=== PATIENT | male | born 1965 | race Caucasian/White ===

== ENCOUNTER → 2024-09-21 14:49 | Outpatient (REF) | payer OTHER, SELFPAY ==
--- NOTE | 2024-09-21 14:56 | CA_ITS ---
Transthoracic Echocardiogram Patient (Last, First, Middle): Manav Godfrey, Gender: Male Date of : 1965 Age: 58 Procedure Date: 09/21/2024 Procedure Type: Transthoracic Echocardiogram Location: OP Height: 180. cm Weight: 97.52 kg BSA: 2.17 m2 Heart Rate: 66 bpm BP: 160 / 75 mmHg Tier Truck Driver: BECCA Benoit MD: Rubia Stacy MD Symptoms: OBRIEN R06.09 Study Quality: Fair ECG Rhythm: Sinus Conclusions: - Normal left ventricular size, thickness, and systolic function. The visually estimated ejection fraction is between 55-60%. - Diastolic function is indeterminate on the basis of available data. - Normal right ventricular cavity size and systolic function. - There is mild dilatation of the sinuses of Valsalva measuring 3.80 cm and mild dilatation of the ascending aorta measuring 3.50 cm. Findings Left Ventricle Normal left ventricular size, thickness, and systolic function. The visually estimated ejection fraction is between 55-60%. There is paradoxical septal motion consistent with a left bundle branch block. Diastolic function is indeterminate on the basis of available data. Right Ventricle Normal right ventricular cavity size and systolic function. Atria The left atrium is normal in size. The right atrium is normal in size. Aortic Valve There is a normal trileaflet aortic valve. There is mild thickening of the aortic valve. There is no aortic valve stenosis. There is no aortic valve regurgitation. Mitral Valve The mitral valve appears normal. There is no mitral valve regurgitation. There is no mitral valve stenosis. Pulmonic Valve The pulmonic valve is normal. There is no pulmonic valve regurgitation. Tricuspid Valve Normal tricuspid valve structure. There is no tricuspid valve regurgitation. Tricuspid regurgitation envelope is inadequate for calculation of right ventricular systolic pressure. Normal right atrial pressure. Great Vessels There is mild dilatation of the sinuses of Valsalva measuring 3.80 cm and mild dilatation of the ascending aorta measuring 3.50 cm. The visualized portions of the pulmonary artery and branches are normal. Venous The inferior vena cava is normal in size and collapses greater than 50% with inspiration. Pericardium/Pleural There is no evidence of pericardial effusion. Prior Study Comparison No prior study available for comparison. Measurements 2D Linear Measurements IVSd: 1.00 0.6-0.9/0.6-1.0 cm LVIDd: 3.79 3.9-5.3/4.2-5.9 cm LVIDd Index: 1.75 2.4-3.2/2.2-3.1 cm/m2 LVIDs: 2.92 2.0-3.6 cm LVPWd: 1.01 0.7-1.1 cm LA Diam: 3.30 2.7-3.8/3.0-4.0 cm LAIDs Index: 1.52 1.5-2.3 cm/m2 LV Mass: 146.30 67-162/88-224 g LV Mass Index: 67.42 43-95/49-115 g/m2 LVOT Diam: 2.20 3.0+(-)1.3 cm 2D Systolic Function EF 4C: 51.90 >55% EF 2C: 59.00 >55% EF BiP: 57.40 >55% Mitral Valve MV Pk E: 0.87 MV PK A: 0.67 MV Decel Time: 171.00 E/A: 1.30 E'Lateral: 8.38 E'Medial: 8.27 E/E' Med: 10.60 E/E' Lat: 10.40 PHT: 50.00 MVA PHT: 4.40 Decel Winkler: 5.12 Aortic Valve AoV Pk Michael: 1.77 AoV Mn Michael: 1.21 AoV VTI: 0.38 AoV Pk Grad: 13.00 Aov Mn Grad: 7.00 JORGE Cont.VTI: 2.62 LVOT LVOT Pk Michael: 1.37 LVOT Mn Michael: 0.78 LVOT VTI: 0.26 LVOT Pk Grad: 8.00 LVOT Mn Grad: 3.00 LVOT Diam: 2.20 LVOT Area: 3.80 Diastolic Function MV Pk E: 0.87 MV Pk A: 0.67 E/A: 1.30 E'Medial: 8.27 E/E' Med: 10.60 E' Laterial: 8.38 E/E' Lat: 10.40 Right Ventricle TAPSE (mm): 28.10 TVS' Michael: 11.20 Tricuspid Valve RA Press: 3.00 Great Vessels Aorta Sinus of Valsalva: 3.80 2.0-3.5 cm Ao Asc: 3.50 2.1-3.4 cm Ao Arch: 3.30 Pulmonary Valve PV Pk Michael: 1.22 Peak PV Grad: 6.00 Updated in Other Vendor System with Status of Final Sampson Martinez MD electronically signed on 09/23/2024 10:26:07 PM with status of Final
--- OUTSIDE RECORDS SUMMARY | 2024-09-21 17:02 | XMS_ITS | Encounter Summary ---
Author Organization [facility], Address [address] [place] [address] Phone Care Team Providers Care Loan Review Analyst Name Role Phone Rubia Goldberg MD Primary Care Prov ider Reason for Visit * Reason Comments Med Refill Encounter Details Date Type Department Care Team (Late st Contact Info) Description 06/30/2022 Refill [facility] [address] [place] [phone] Thompson Boss PA Social History Tobacco Use Types Packs/Day Years Used Date Smoking Tobacco: Never Alcohol Use Standard Drinks/Week Comments No 0 (1 standard drink = 0.6 oz pur e alcohol) Sex and Gender Information Value Date Recorded Sex Assigned at Not on file Legal Sex Male 4:36 PM EST Gender Identity Not on file Sexual Orientation Not on file documented as of this encounter Plan of Treatment Upcoming Encounters Date Type Department Care Team (Late st Contact Info) Description 11/05/2024 1:00 PM EDT Clinical Support [facility] [address] [place] [phone] Zakia Bowens FNP-C [address] [place] [address] [place] [phone] documented as of this encounter Visit Diagnoses Not on filedocumented in this encounter Care Teams Loan Review Analyst Relationship Specialty Start Date End Date Rubia Goldberg MD [address] [place] [phone] PCP - General 05/08/19 documented as of this encounter
--- OUTSIDE RECORDS SUMMARY | 2024-09-21 17:02 | XMS_ITS | Clinical Summary ---
Author Organization [facility], Address [address] [place] [address] [place] [address] Phone Care Team Providers Care Java Programmer Name Role Phone Rubia Goldberg MD Primary Care Prov ider Allergies No known active allergies Medications metFORMIN (GLUCOPHAGE) 1000 MG tablet 0.5 tablets (500 mg total) 2 (two) times a day with meals 0 Active furosemide (LASIX) 40 MG tablet Take 40 mg by mouth 1 (one) time each day in the morning 1 Active cholecalciferol (VITAMIN D-3 SUPER STRENGTH) 50 MCG (2000 UT) tablet Take 2,000 Units by mouth daily Active aspirin (ST FRANK) 81 MG EC tablet Take 81 mg by mouth daily Active acetaminophen (TYLENOL) 325 MG tablet Take 650 mg by mouth 8 Active rosuvastatin (Crestor) 10 MG tablet Take 1 tablet (10 mg total) by mouth 1 (one) time each day For high cholesterol 30 tablet 11 1 Active Accu-Chek Sana Plus test strip USE DIRECTED TO TEST BLOOD GLUCOSE 3 TIMES A DAY FOR 90 DAYS 1 Active amoxicillin (AMOXIL) 500 MG capsule TAKE 4 CAPSULES BY MOUTH 1 HOUR PRIOR TO DENTAL PROCEDURES 1 Active atorvastatin (LIPITOR) 40 MG tablet Take 40 mg by mouth 1 (one) time each day 2 Active lisinopril 10 MG tablet Take 1 tablet (10 mg total) by mouth 1 (one) time each day 4 Active tamsulosin (FLOMAX) 0.4 MG 24 hr capsule TAKE 1 CAPSULE BY MOUTH 1 TIME EACH DAY. 90 capsule 3 4 Active Xarelto 20 MG tablet Take 20 mg by mouth 1 (one) time each day 4 Active dilTIAZem SR (CARDIZEM SR) 60 MG 12 hr capsule Take 60 mg by mouth 1 (one) time each day 4 Active sirolimus (RAPAMUNE) 1 MG tablet Take 2 tablets (2 mg total) by mouth 1 (one) time each day 180 tablet 3 4 Active predniSONE 5 MG tablet TAKE 1 AND 1/2 TABLETS ONCEDAILY. 135 tablet 3 5 Active Active Problems Problem Noted Date Diagnosed Date Chronic kidney disease 01/18/2023 Hypervolemia 07/16/2020 Essential hypertension 09/07/2019 Chronic kidney disease stage 2 09/07/2019 Type 2 diabetes mellitus without complication History of immunosuppressive therapy 06/14/2019 History of renal transplant 06/14/2019 Overview (06/14/2019): Last Assessment & Plan: The patient's right renal transplant may affect the presenting issue of surgical procedure (s) and may increase the risk of slow healing wound (s), infection (s), kidney, lung and/or heart problems. Stable and/or controlled chronic conditions may reduce complications associated with your chronic condition (s). Hyperlipidemia 06/14/2019 Polycystic kidney disease, adult type 06/14/2019 Resolved Problems Problem Noted Date Diagnosed Date Resolved Date COVID-19 acute respiratory distress syndrome 1 09/09/2020 Personal history of COVID-19 05/13/2021 Encounters Date Type Department Care Team Description 07/27/2024 Refill [facility] [address] [place] [phone] Denis Rooney MD 07/11/2024 8:45 AM EST Office Visit [facility] [address] [place] [phone] Thompson Boss PA History of renal transplant (Primary Dx); History of immunosuppressive therapy; Chronic kidney disease stage 2 from Last 3 Months Immunizations Name Administration Dates Next Due H1N1 Inj 06/11/2009 Influenza Split High Dose Pr eservative Free IM 04/15/2015 Influenza Whole 05/07/2009 Influenza, MDCK, Quadrivalen t, with preservative 03/24/2017 Influenza, Unspecified 04/03/2020 Pfizer SARS-COV-2 02/23/2021,10/07/2020,09/17/19 21 Pneumococcal Polysaccharide 05/07/2020 Td 05/07/2020 Tdap 05/06/2010 Family History Medical History Relation Comments Cancer Father Skin CA Diabetes Father Hypertension Father Cancer Mother Cervical Kidney disease Mother PCKD Kidney disease Sibling Sister-PCKD Relation Status Comments Father Mother Sibling Social History Tobacco Use Types Packs/Day Years Used Date Smoking Tobacco: Never Alcohol Use Standard Drinks/Week Comments No 0 (1 standard drink = 0.6 oz pur e alcohol) Sex and Gender Information Value Date Recorded Sex Assigned at Not on file Legal Sex Male 4:36 PM EST Gender Identity Not on file Sexual Orientation Not on file Last Filed Vital Signs Vital Sign Reading Time Taken Comments Blood Pressure 118/62 07/11/2024 8:55 AM EST Pulse 68 04/20/2019 12:00 PM EDT Temperature - - Respiratory Rate 14 04/20/2019 12:0 0 PM EDT Oxygen Saturation - - Inhaled Oxygen Concentration - - Weight 99.7 kg (219 lb 12.8 oz) 07/11/2024 8:55 AM EST Height 177.8 cm (5' 10 ) 07/11/2024 8:55 AM EST Body Mass Index 31.54 07/11/2024 8:55 AM EST Plan of Treatment Upcoming Encounters Date Type Department Care Team (Late st Contact Info) Description 11/05/2024 1:00 PM EDT Clinical Support [facility] [address] [place] [phone] Zakia Bowens FNP-C [address] [place] [phone] Health Maintenance Due Date Last Done Comments Diabetes: Ophthalmology Exam 08/05/2019 Diabetes: Pedal Pulse Checked 08/05/2019 Diabetes: Sensory Foot Exam 08/05/2019 Diabetes: Visual Foot Exam 08/05/2019 Colonoscopy (Post-Transplant Patient) 02/13/2020 Pneumococcal Vaccine: Pediatrics (0 to 5 Years) and At-Risk Patients (6 to 64 Years) (2 of 2 - PCV) 05/07/2021 05/07/2020 Influenza Vaccine (#1) 2024 0, 03/24/2017, 04/15/2015, Additional history exists Diabetes: Hemoglobin A1C 06/02/2024 024, 01/18/2023, 07/16/2022, Additional history exists Hepatitis B Vaccine Aged Out No longe r eligible based on patient's age to complete this topic Procedures Procedure Name Priority Date/Time Associated Diagnosis Comments CREATINE KINASE Routine 07/06/2024 8:59 AM EST History of renal transplant History of immunosuppressive therapy Chronic kidney disease stage 2 Type 2 diabetes mellitus without complication (HCC) Iron deficiency anemia, not otherwise specified Kidney replaced by transplant Proteinuria, not otherwise specified ALT Routine 07/06/2024 8:59 AM EST History of renal transplant History of immunosuppressive therapy Chronic kidney disease stage 2 Type 2 diabetes mellitus without complication (HCC) Iron deficiency anemia, not otherwise specified Kidney replaced by transplant Proteinuria, not otherwise specified AST Routine 07/06/2024 8:59 AM EST History of renal transplant History of immunosuppressive therapy Chronic kidney disease stage 2 Type 2 diabetes mellitus without complication (HCC) Iron deficiency anemia, not otherwise specified Kidney replaced by transplant Proteinuria, not otherwise specified SIROLIMUS LEVEL Routine 07/06/2024 8:59 AM EST History of renal transplant History of immunosuppressive therapy Chronic kidney disease stage 2 Type 2 diabetes mellitus without complication (HCC) Iron deficiency anemia, not otherwise specified Kidney replaced by transplant Proteinuria, not otherwise specified PROTEIN / CREATININE RATIO, URINE Routine 07/06/2024 8:59 AM EST History of renal transplant History of immunosuppressive therapy Chronic kidney disease stage 2 Type 2 diabetes mellitus without complication (HCC) Iron deficiency anemia, not otherwise specified Kidney replaced by transplant Proteinuria, not otherwise specified URINALYSIS, COMPLETE Routine 07/06/2024 8:59 AM EST History of renal transplant History of immunosuppressive therapy Chronic kidney disease stage 2 Type 2 diabetes mellitus without complication (HCC) Iron deficiency anemia, not otherwise specified Kidney replaced by transplant Proteinuria, not otherwise specified RENAL FUNCTION PANEL Routine 07/06/2024 8:59 AM EST History of renal transplant History of immunosuppressive therapy Chronic kidney disease stage 2 Type 2 diabetes mellitus without complication (HCC) Iron deficiency anemia, not otherwise specified Kidney replaced by transplant Proteinuria, not otherwise specified CBC AND DIFFERENTIAL Routine 07/06/2024 8:59 AM EST History of renal transplant History of immunosuppressive therapy Chronic kidney disease stage 2 Type 2 diabetes mellitus without complication (HCC) Iron deficiency anemia, not otherwise specified Kidney replaced by transplant Proteinuria, not otherwise specified MICROSCOPIC EXAMINATION - DO NOT USE Routine 07/06/2024 8:59 AM EST HEMOGLOBIN A1C Routine 03/02/2024 10:01 AM EDT History of renal transplant History of immunosuppressive therapy Type 2 diabetes mellitus without complication (HCC) Iron deficiency anemia, not otherwise specified Chronic kidney disease stage 2 Hypervolemia Kidney replaced by transplant 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, 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, not otherwise specified Hypomagnesemia Hyperlipidemia, not otherwise specified Poor glycemic control from Last 3 Months or Most Recently Relevant to Health Maintenance Results * (ABNORMAL) Urinalysis, Complete w/reflex to Culture (07/06/2024 8:59 AM EST) Specific [place], Urine 1.021 1.005 - 1.030 [facility] pH Urine 5.5 5.0 - 7.5 [facility] Color, Urine Yellow Yellow [facility] Appearance Urine Clear Clear [facility] WBC Esterase Urine Negative Negative [facility] [phone] Protein, Ur 2+(A) Negative/Tra ce [facility] [phone] Glucose, Ur Negative Negative [facility] [phone] Ketones, Urine Negative Negative [facility] [phone] Blood Urine Negative Negative [facility] Bilirubin Urine Negative Negative [facility] [phone] Urobilinogen Urine 0.2 0.2 - 1.0 mg/dL [facility] Nitrite, Urine Negative Negative [facility] Microscopic Examination See below: [facility] Comment:Microscopic was ghislaine cated and was performed. URINALYSIS REFLEX Comment [facility] [phone] Comment:This specimen will n ot reflex to a Urine Culture. Urine (Urine, Clean Catch) 07/06/2024 8:59 AM EST 07/06/2024 Thompson [facility] URINE ORDERABLES Final Re sult [facility] [address] [place] [address] * Microscopic Examination (07/06/2024 8:59 AM EST) WBC, Urine 0-5 0 - 5 /hpf [facility] RBC, Urine None seen 0 - 2 /hpf [facility] Squamous Epithelial, Urine None seen 0 - 10 /hpf [facility] Casts None seen None seen /lpf [facility] Bacteria, Urine None seen None seen/Few [facility] 07/06/2024 8:59 AM EST 07/06/2024 Thompson [facility] MICROBIOLOGY - GENERAL OR DERABLES Final Result [facility] [address] [place] [address] * Sirolimus level (07/06/2024 8:59 AM EST) Pathologist [facility] Sirolimus Lvl 14.9 3.0 - 20.0 ng/mL [facility] Comment:Performed by LC/MS-M S technology Blood (Blood, Venous) 07/06/2024 8:59 AM EST 07/06/2024 Narrative [facility] - 07/10/2024 3:05 AM EST Test(s) [id number], Blood was developed and its performance characteristics determined by [facility]. It has not been cleared or approved by the Food and Drug Administration. Thompson [facility] BLOOD ORDERABLES Final Re sult Performing Organization Address City/[facility]/ZIP Co de Phone Number [facility] [place] [address] * (ABNORMAL) Protein, Total, Random Urine w/Creatinine (Protein/Creat Ratio) (07/06/2024 8:59 AM EST) Pathologist [facility] Creatinine, Ur 110.4 Not Estab. mg/dL [facility] Protein, Ur 57.2 Not Estab. mg/dL [facility] Urine Protein/Creati nine Ratio 518(H) 0 - 200 mg/g creat [facility] Urine (Urine, Clean Catch) 07/06/2024 8:59 AM EST 07/06/2024 Thompson [facility] URINE ORDERABLES Final Re sult [facility] [address] [place] [address] * CBC and Differential (07/06/2024 8:59 AM EST) Pathologist [facility] WBC 8.9 3.4 - 10.8 x10E3/uL [facility] RBC 4.79 4.14 - 5.80 x10E6/uL [facility] Hemoglobin 13.1 13.0 - 17.7 g/dL [facility] Hematocrit 41.4 37.5 - 51.0 % [facility] MCV 86 79 - 97 fL [facility] MCH 27.3 26.6 - 33.0 pg [facility] MCHC 31.6 31.5 - 35.7 g/dL [facility] RDW 14.1 11.6 - 15.4 % [facility] Platelets 207 150 - 450 x10E3/uL [facility] Neutrophils Relative 61 Not Estab. % [facility] Lymphocytes Relative 29 Not Estab. % [facility] Monocytes 6 Not Estab. % [facility] Eosinophils Relative 4 Not Estab. % [facility] Basophils Relative 0 Not Estab. % [facility] Neutrophils Absolute 5.4 1.4 - 7.0 x10E3/uL [facility] Lymphocytes Absolute 2.6 0.7 - 3.1 x10E3/uL [facility] Monocytes Absolute 0.6 0.1 - 0.9 x10E3/uL [facility] Eosinophils Absolute 0.3 0.0 - 0.4 x10E3/uL [facility] Basophils Absolute 0.0 0.0 - 0.2 x10E3/uL [facility] Immature Granulocytes 0 Not Estab. % [facility] Immature Grans (Absolute) 0.0 0.0 - 0.1 x10E3/uL [facility] Blood (Blood, Venous) 07/06/2024 8:59 AM EST 07/06/2024 Thompson [facility] BLOOD ORDERABLES Final Re sult Performing Organization Address City/[facility]/ZIP Co de Phone Number [facility] [address] [place] [address] * ALT (07/06/2024 8:59 AM EST) ALT (SGPT) 25 0 - 44 IU/L [facility] Blood (Blood, Venous) 07/06/2024 8:59 AM EST 07/06/2024 Thompson [facility] BLOOD ORDERABLES Final Re sult Performing Organization Address [facility] de Phone Number [facility] [address] [place] [address] * AST (07/06/2024 8:59 AM EST) AST (SGOT) 24 0 - 40 IU/L [facility] Blood (Blood, Venous) 07/06/2024 8:59 AM EST 07/06/2024 Thompson [facility] BLOOD ORDERABLES Final Re sult Performing Organization Address City/[facility] Co de Phone Number [facility] [address] [place] [address] * CK (07/06/2024 8:59 AM EST) Creatine Kinase (CK/CPK) 41 41 - 331 U/L [facility] Blood (Blood, Venous) 07/06/2024 8:59 AM EST 07/06/2024 Thompson [facility]ARZA [facility] BLOOD ORDERABLES Final Re sult [facility] [address] [place] [address] * (ABNORMAL) Renal Function Panel (07/06/2024 8:59 AM EST) Glucose 117(H) 70 - 99 mg/dL [facility] BUN 29(H) 8 - 27 mg/dL [facility] Creatinine 1.02 0.76 - 1.27 mg/dL [facility] eGFR CKD-EPI CR 2020 84 >59 mL/min/1.7 3 [facility] BUN/Creatinine Ratio 28(H) 10 - 24 [facility] Sodium 142 134 - 144 mmol/L [facility] Potassium 4.3 3.5 - 5.2 mmol/L [facility] Chloride 103 96 - 106 mmol/L [facility] Bicarbonate (CO2) 21 20 - 29 mmol/L [facility] Calcium 9.8 8.6 - 10.2 mg/dL [facility] Albumin 4.0 3.8 - 4.9 g/dL [facility] Phosphorus 4.0 2.8 - 4.1 mg/dL [facility] Blood (Blood, Venous) 07/06/2024 8:59 AM EST 07/06/2024 Thompson [facility] BLOOD ORDERABLES Final Re sult Performing Organization Address City/[facility]/ZIP Co de Phone Number [facility] [address] [place] [address] * (ABNORMAL) Hemoglobin A1c (03/02/2024 10:01 AM EDT) Hemoglobin A1C 6.1(H) 4.8 - 5.6 % [facility] Comment: ? Prediabetes: 5.7 - 6.4 ? Diabetes: >6.4 ? Glycemic control for adults with diabetes: <7.0 Blood (Blood, Venous) 03/02/2024 10:01 AM EDT 03/02/2024 Thompson [facility] BLOOD ORDERABLES Final Re sult Performing Organization Address [facility] Co de Phone Number [facility] [address] [place] [address] from Last 3 Months or Most Recently Relevant to Health Maintenance Insurance [employer] Care Teams Java Programmer Relationship Specialty Start Date End Date Rubia Goldberg MD [address] [place] [address] PCP - General 05/08/19
--- OUTSIDE RECORDS SUMMARY | 2024-09-21 17:02 | XMS_ITS | Encounter Summary ---
Author Organization [facility], Address [address] [place] [address] Phone Care Team Providers Care Slip Tender Name Role Phone Rubia Goldberg MD Primary Care Prov ider Reason for Visit * Reason Comments Med Refill Encounter Details Date Type Department Care Team (Late st Contact Info) Description 07/18/2023 Refill [facility] [address] [place] [address] Denis Rooney MD [address] [place] [address] [place] [address] Social History Tobacco Use Types Packs/Day Years [...] Clinical Support [facility] [address] [place] [address] Zakia Bowens FNP-C [address] [place] [address] [place] [address] documented as of this encounter Visit Diagnoses Not on filedocumented in this encounter Care Teams Slip Tender Relationship Specialty Start Date End Date Rubia Goldberg MD [address] [place] [address] PCP - General 05/08/19 documented as of this encounter
--- OUTSIDE RECORDS SUMMARY | 2024-09-21 17:02 | XMS_ITS | Encounter Summary ---
Author Organization [facility], Address [address] [place] [address] Phone Care Team Providers Care Sewer Repairer Name Role Phone Rubia Goldberg MD Primary Care Prov ider Reason for Visit * Reason Comments Med Change Request Encounter Details Date Type Department Care Team (Late st Contact Info) Description 08/03/2021 Refill [facility] [address] [place] [address] Thompson Boss PA Social History Tobacco Use [...] Clinical Support [facility] [address] [place] [phone] Zakia Bowens FNP-C [address] [place] [address] [place] [phone] documented as of this encounter Visit Diagnoses Not on filedocumented in this encounter Care Teams Sewer Repairer Relationship Specialty Start Date End Date Rubia Goldberg MD [address] [place] [phone] PCP - General 05/08/19 documented as of this encounter
--- OUTSIDE RECORDS SUMMARY | 2024-09-21 17:02 | XMS_ITS | Encounter Summary ---
Author Organization [facility], Address [address] [place] [address] Phone Care Team Providers Care Application Software Developer Name Role Phone Rubia Goldberg MD Primary Care Prov ider Reason for Visit * Reason Comments Med Refill Encounter Details Date Type Department Care Team (Late Contact Info) Description 12/10/2019 Refill [facility] [address] [place] [address] Trevor Elam MD [address] [place] [address] [place] [address] Social History Tobacco Use Types Packs/Day Years Used Date Smoking Tobacco: Never Alcohol Use Standard Drinks/Week Comments No 0 (1 standard drink = 0.6 oz pur e alcohol) Sex and Gender Information Value Date Recorded Sex Assigned at Not on file Legal Sex Male 4:36 PM EST Gender Identity Not on file Sexual Orientation Not on file COVID-19 Exposure Response Date Recorded In the last month, have you been in contact with someone who was confirmed or suspected to have Coronavirus / COVID-19? No / Unsure 11/14/2019 5:37 AM EDT documented as of this encounter Plan of Treatment Upcoming Encounters Date Type Department Care Team (Late Contact Info) Description 11/05/2024 1:00 PM EDT Clinical Support [facility] [address] [place] [address] Zakia Bowens FNP-C [address] [place] [address] documented as of this encounter Visit Diagnoses Not on filedocumented in this encounter Care Teams Application Software Developer Relationship Specialty Start Date End Date Rubia Goldberg MD [address] [place] [address] PCP - General 05/08/19 documented as of this encounter
== END ==
LOC: HO.CARD 14:49
PROVIDERS: PCP Family Medicine; Visit Provider Family Medicine
DX: R06.09 Other forms of dyspnea (principal)
CPT/HCPCS: 93306

== ENCOUNTER → 2024-09-21 14:56 | Outpatient (BNV) | payer OTHER, SELFPAY | PROVIDERS: PCP Family Medicine; Visit Provider Internal Medicine Cardiovascular Disease | DX: I42.8 Other cardiomyopathies (principal); I44.7 Left bundle-branch block, unspecified | CPT/HCPCS: 93306 ==